=== PATIENT | female | born 1970 | race Caucasian/White ===

== ENCOUNTER 2025-06-05 01:24 | Outpatient (CLI) | payer BC, SELFPAY ==
--- OUTSIDE RECORDS SUMMARY | 2024-09-20 00:29 | XMS_ITS | Encounter Summary ---
Author Organization [facility] [place] [address] Care Team Providers Care Physician Primary Care Sports Medicine Name Role Phone Noah Coleman MD Primary Care Provider [phone] Encounter Details Date Type Department Care Team (Late st Contact Info) Description 08/31/2022 Interpretation Only [address] [address] Anju French APRN [address] [place] [address] [id number] Social History Tobacco Use Types Packs/Day Years Used Date Smoking Tobacco: Never Assessed Sex and Gender Information Value Date Recorded Sex Assigned at Not on file Gender Identity Not on file Sexual Orientation Not on file documented as of this encounter Plan of Treatment Not on file documented as of this encounter Procedures Procedure Name Priority Date/Time Associated Diagnosis Comments XR LUMBAR SPINE 2 OR 3 VIEWS Routine 08/31/2022 2:10 PM EDT documented in this encounter Results * XR Lumbar Spine 2 Or 3 Views (Generic) (08/31/2022 2:10 PM EDT) PT CLASS O RAD ADMITDTTM RAD PT RAD INFO [id number]^B [place] NE RAD EXAM DESC XLSP2^XR L-SPINE AP+LAT ROUTINE^RIS RAD Anatomical Region Laterality Modality L-spine N/A Radiographic Gloria ging Impressions 08/31/2022 2:40 PM EDT Degenerative changes as above. No acute fracture or evidence of traumatic subluxation. Thank you for letting us participate in the care of this patient. ??If you are a health care provider and have any questions regarding this report, please contact the number below. ??For patients who have questions please contact the health home care aide that requested your imaging first. ? Narrative 08/31/2022 2:40 PM EDT EXAMINATION: XR L-SPINE AP+LAT ROUTINE CLINICAL HISTORY: midline low back pain without sciatica TECHNIQUE: 3 views of the lumbar spine COMPARISON: None FINDINGS: 5 nonrib-bearing lumbar-type vertebral bodies. Maintained vertebral height and intervertebral disc spaces. Slight anterolisthesis of L4 on L5, grade 1, with facet hypertrophy. Post cholecystectomy clips. An IUD in place. Procedure Note Dereje De Paz MD - 08/31/2022 EXAMINATION: XR L-SPINE AP+LAT ROUTINE CLINICAL HISTORY: midline low back pain without sciatica TECHNIQUE: 3 views of the lumbar spine COMPARISON: None FINDINGS: 5 nonrib-bearing lumbar-type vertebral bodies. Maintained vertebral heightand intervertebral disc spaces. Slight anterolisthesis of L4 on L5, grade 1,with facet hypertrophy. Post cholecystectomy clips. An IUD in place. IMPRESSION Degenerative changes as above. No acute fracture or evidence oftraumatic subluxation. Thank you for letting us participate in the care of this patient. If youare a health care provider and have any questions regarding this report,please contact the number below. For patients who have questions please contactthe health home care aide that requested your imaging first. Anju M [place] SUPERVISOR PLASMA IMG DX ORDERABLES documented in this encounter Visit Diagnoses Not on filedocumented in this encounter Care Teams Physician Primary Care Sports Medicine Relationship Specialty Start Date End Date Noah Coleman MD [address] [place] [address] PCP - General 10/19/10 documented as of this encounter
--- OUTSIDE RECORDS SUMMARY | 2024-09-20 00:29 | XMS_ITS | Referral Summary ---
Author Organization [facility] Address [address] [place] [address] Care Team Providers Care Courtroom Reporter Name Role Phone Unknown, Provider Primary Care Provider Social History Tobacco Use Types Packs/Day Years Used Date Smoking Tobacco: Never Assessed Sex and Gender Information Value Date Recorded Sex Assigned at Not on file Gender Identity Not on file Sexual Orientation Not on file Plan of Treatment Not on file Care Teams Courtroom Reporter Relationship Specialty Start Date End Date Unknown, Provider, PCP - General 03/01/13
--- OUTSIDE RECORDS SUMMARY | 2024-09-20 00:29 | XMS_ITS | Encounter Summary ---
Author Organization [facility] [place] [address] Care Team Providers Care Medical Billing And Coding Specialist Name Role Phone Noah Coleman MD Primary Care Provider [phone] [phone] Encounter Details Date Type Department Care Team (Late st Contact Info) Description 03/15/2022 Orders [place] [address] Екатерина Lazar APRN [facility] [place] [address] Social History Tobacco Use Types Packs/Day Years Used Date Smoking Tobacco: Never Assessed Sex and Gender Information Value Date Recorded Sex Assigned at Not on file Gender Identity Not on file Sexual Orientation Not on file documented as of this encounter Plan of Treatment Not on file documented as of this encounter Procedures Procedure Name Priority Date/Time Associated Diagnosis Comments VARICELLA ZOSTER ANTIBODY, IGG Routine 03/15/2022 1:45 PM EDT documented in this encounter Results * Varicella zoster Antibody, IgG (03/15/2022 1:45 PM EDT) Varicella Zoster Antibody IgG Positive Positive [facility] Comment: A positive result for this assay is considered to be an indicator of positive immune status. Blood Venous Draw / Unknown 03/15/2022 1:45 PM EDT 03/16/2022 7:30 AM EDT Narrative Resulting Agency Comment Spec In Lab Екатерина Lazar APRN IMMUNOLOGY ORDERABLE S [facility] [place] [address] documented in this encounter Visit Diagnoses Not on filedocumented in this encounter Care Teams Medical Billing And Coding Specialist Relationship Specialty Start Date End Date Noah Coleman MD [address] [place] [address] PCP - General 10/19/10 documented as of this encounter
--- OUTSIDE RECORDS SUMMARY | 2024-09-20 00:29 | XMS_ITS | Clinical Summary ---
Author Organization [facility] Address [address] [place] [address] Care Team Providers Care Recreational Specialist Name Role Phone Unknown, Provider Primary Care Provider Social History Tobacco Use Types Packs/Day Years Used Date Smoking Tobacco: Never Assessed Sex and Gender Information Value Date Recorded Sex Assigned at Not on file Gender Identity Not on file Sexual Orientation Not on file Plan of Treatment Health Maintenance Due Date Last Done Comments Hepatitis C Screen 1972 Hepatitis B Vaccine (1 of 3 - 19+ 3-dose series) 01/06 COVID-19 Vaccine (2022- season) 2023 Care Teams Recreational Specialist Relationship Specialty Start Date End Date Unknown, Provider, PCP - General 03/01/13
--- OUTSIDE RECORDS SUMMARY | 2024-09-20 00:29 | XMS_ITS | Encounter Summary ---
Author Organization [facility] [place] [address] Care Team Providers Care Evidence Custodian Name Role Phone Noah Coleman MD Primary Care Provider [phone] [phone] Encounter Details Date Type Department Care Team (Late st Contact Info) Description 03/15/2022 Orders [place] [address] Екатерина Lazar APRN [facility] [place] [address] Social History Tobacco Use Types Packs/Day Years Used Date Smoking Tobacco: Never Assessed Sex and Gender Information Value Date Recorded Sex Assigned at Not on file Gender Identity Not on file Sexual Orientation Not on file documented as of this encounter Plan of Treatment Not on file documented as of this encounter Procedures Procedure Name Priority Date/Time Associated Diagnosis Comments RUBELLA ANTIBODY, IGG Routine 03/15/2022 1:45 PM EDT documented in this encounter Results * Rubella Antibody, IgG (03/15/2022 1:45 PM EDT) Rubella Antibody IgG Positive Positive [facility] Comment: Please note: ??A positive result for this assay indicates that antibody levels are >or= 10.0 IU/mL and is considered to be an indicator of positive immune status. Blood Venous Draw / Unknown 03/15/2022 1:45 PM EDT 03/15/2022 1:59 PM EDT Narrative Resulting Agency Comment Spec In Lab Екатерина Lazar APRN CHEMISTRY ORDERABLES [facility] [place] [address] documented in this encounter Visit Diagnoses Not on filedocumented in this encounter Care Teams Evidence Custodian Relationship Specialty Start Date End Date Noah Coleman MD [address] [place] [address] PCP - General 10/19/10 documented as of this encounter
--- OUTSIDE RECORDS SUMMARY | 2024-09-20 00:29 | XMS_ITS | Encounter Summary ---
Author Organization [facility] Address [address] [place] [address] Care Team Providers Care Nutrition Teacher Name Role Phone Unavailable Primary Care Provider Unavailabl e Encounter Details Date Type Department Care Team ([facility] st Contact Info) Description 09/27/2011 Results Only [facility] Laboratory Services - [facility] ([facility] [address] [place], [place] [address] Anju French, NEW CAR MAKE READY WORKER [address] [place] [address] Social History Tobacco Use Types Packs/Day Years Used Date Smoking Tobacco: Never Assessed Sex and Gender Information Value Date Recorded Sex Assigned at Not on file Gender Identity Not on file Sexual Orientation Not on file documented as of this encounter Plan of Treatment Not on file documented as of this encounter Procedures Procedure Name Priority Date/Time Associated Diagnosis Comments PAP TEST- RESULT ONLY Routine 09/27/2011 0:00 EDT documented in this encounter Results * PAP TEST- RESULT ONLY (09/27/2011 0:00 EDT) Pathology Report: CYTOPATHOLOGY REPORT Reports generated via electronic interface contain original data; however they are lacking the format of the original report. Caution should be taken when reading/interpreti ng unformatted reports. Name: ? IZABELA RAHMAN ? Accession #: ? [id number] : ? 1970 (Age: 41) ??F ?Collect Date: ? 09/27/2011 Location: ? [facility] ? Receive Date: ? 09/29/2011 Provider: ?ANJU FRENCH NEW CAR MAKE READY WORKER Copy to: ? Specimen/Source: ?Pap Test, Cervix, ThinPrep Imaging System with manual evaluation Last Menstrual Period: ? 6 years Hormonal/Contracep tive Status: ? Intrauterine device: mirena in place ? SPECIMEN ADEQUACY ? Satisfactory for Evaluation - transformation zone component present GENERAL CATEGORIZATION ? Negative for Intraepithelial Lesion or Malignancy INTERPRETATION ? Reactive cellular changes associated with inflammation present (includes repair). ? Document reviewed and electronically signed by: ? REGINA DAVIS MD ? Report Date: ??10/08/2011 13:28 End of Report [facility] 09/27/2011 09/29/2011 Anju French NEW CAR MAKE READY WORKER PATHOLOGY ORDERAB LES [facility] IGLESI[facility] [address] [place] [address] documented in this encounter Visit Diagnoses Not on filedocumented in this encounter
--- OUTSIDE RECORDS SUMMARY | 2024-09-20 00:29 | XMS_ITS | Encounter Summary ---
Author Organization [facility] [place] [address] Care Team Providers Care Seamer Name Role Phone Noah Coleman MD Primary Care Provider [phone] [phone] Encounter Details Date Type Department Care Team (Late st Contact Info) Description 03/15/2022 Orders [place] [address] Екатерина Lazar APRN [facility] [place] [address] Social History Tobacco Use Types Packs/Day Years Used Date Smoking Tobacco: Never Assessed Sex and Gender Information Value Date Recorded Sex Assigned at Not on file Gender Identity Not on file Sexual Orientation Not on file documented as of this encounter Plan of Treatment Not on file documented as of this encounter Procedures Procedure Name Priority Date/Time Associated Diagnosis Comments QUANTIFERON-TB GOLD Routine 03/15/2022 1 :45 PM EDT documented in this encounter Results * QuantiFERON-TB Gold (03/15/2022 1:45 PM EDT) Quantiferon Nil 0.081 IU/mL [facility] QFT TB Ag1-Nil 0.126 IU/mL [facility] QFT TB Ag2-Nil 0.036 IU/mL [facility] Quantiferon Mitogen-Nil 9.919 IU/mL [facility] Quantiferon-TB Gold Negative Negative [facility] Quantiferon Tb Interp M. tuberculosis infection NOT likely A negative specimen should have a TB1 Ag minus Nil value and TB2 Ag minus Nil value of less than 0.35 IU/mL OR a TB1 Ag minus Nil or TB2 Ag minus Nil value greater than or equal to 0.35 IU/mL AND a TB Ag minus Nil value from the same tube of less than 25% of the Nil value. A negative specimen must also have a mitogen minus Nil value greater than or equal to 0.5 IU/mL. A negative QFT-Plus result does not preclude the possibility of M. tuberculosis infection. False negative results can occur due to stage of infection (specimen obtained prior to the development of immune response), co-morbid conditions which affect immune function, or other immunological factors. [facility] Blood Venous Draw / Unknown 03/15/2022 1:45 PM EDT 03/16/2022 10:34 AM EDT Narrative Resulting Agency Comment Spec In Lab Екатерина T Cady AUTO OVERHAULER CHEMISTRY ORDERABLES [facility] [place] [address] documented in this encounter Visit Diagnoses Not on filedocumented in this encounter Care Teams Seamer Relationship Specialty Start Date End Date Noah Coleman MD [address] [place] [address] PCP - General 10/19/10 documented as of this encounter
--- OUTSIDE RECORDS SUMMARY | 2024-09-20 00:29 | XMS_ITS | Encounter Summary ---
Author Organization [facility] [place] [address] Care Team Providers Care Elevator Examiner And Adjuster Name Role Phone Noah Coleman MD Primary Care Provider [phone] Encounter Details Date Type Department Care Team (Late st Contact Info) Description 03/15/2022 Orders [place] [address] Екатерина Lazar APRN [facility] [place] [address] Social History Tobacco Use Types Packs/Day Years Used Date Smoking Tobacco: Never Assessed Sex and Gender Information Value Date Recorded Sex Assigned at Not on file Gender Identity Not on file Sexual Orientation Not on file documented as of this encounter Plan of Treatment Not on file documented as of this encounter Procedures Procedure Name Priority Date/Time Associated Diagnosis Comments MUMPS ANTIBODY, IGG Routine 03/15/2022 1 :45 PM EDT documented in this encounter Results * Mumps Antibody, IgG (03/15/2022 1:45 PM EDT) Mumps Antibody IgG Positive Positive [facility] Comment: A positive result for this assay is considered to be an indicator of positive immune status. Blood Venous Draw / Unknown 03/15/2022 1:45 PM EDT 03/16/2022 7:30 AM EDT Narrative Resulting Agency Comment Spec In Lab Екатерина Lazar APRN IMMUNOLOGY ORDERABLE S [facility] [place] [address] documented in this encounter Visit Diagnoses Not on filedocumented in this encounter Care Teams Elevator Examiner And Adjuster Relationship Specialty Start Date End Date Noah Coleman MD [address] [place] [address] PCP - General 10/19/10 documented as of this encounter
--- OUTSIDE RECORDS SUMMARY | 2024-09-20 00:29 | XMS_ITS | Encounter Summary ---
Author Organization [facility] Address [address] [place] [address] Care Team Providers Care Body Shop Manager Name Role Phone Unavailable Primary Care Provider Unavailabl e Encounter Details Date Type Department Care Team (Latest Contact Info) Description 09/27/2011 10:29 EDT - 09/27/2011 10:34 EDT Hospital Encounter [address] [address] Anju French, CH[employer] HISTORY TEACHER [address] [place] [address] Discharge Disposition: Home or Self Care Social History Tobacco Use Types Packs/Day Years Used Date Smoking Tobacco: Never Assessed Sex and Gender Information Value Date Recorded Sex Assigned at Not on file Gender Identity Not on file Sexual Orientation Not on file documented as of this encounter Discharge Disposition Disposition Code Departure Means Destination Home or Self Care documented in this encounter Plan of Treatment Not on file documented as of this encounter Visit Diagnoses Not on filedocumented in this encounter
--- OUTSIDE RECORDS SUMMARY | 2024-09-20 00:29 | XMS_ITS | Encounter Summary ---
Author Organization [facility] Address [address] [place] [address] Care Team Providers Care Brusher Operator Name Role Phone Unknown, Provider Primary Care Provider Encounter Details Date Type Department Care Team (Late st Contact Info) Description 03/01/2013 Results Only [facility] Laboratory Services - [facility] ([facility] [address] [place], [place] [address] Sudhakar Jernigan, DO [address] [facility] [address] [place], [place] [id number] Social History Tobacco Use Types Packs/Day Years Used Date Smoking Tobacco: Never Assessed Sex and Gender Information Value Date Recorded Sex Assigned at Not on file Gender Identity Not on file Sexual Orientation Not on file documented as of this encounter Plan of Treatment Not on file documented as of this encounter Procedures Procedure Name Priority Date/Time Associated Diagnosis Comments SURGICAL PATHOLOGY Routine 03/01/2013 20 :36 EDT documented in this encounter Results * SURGICAL PATHOLOGY (03/01/2013 20:36 EDT) Pathology Report: SURGICAL PATHOLOGY REPORT Reports generated via electronic interface contain original data; however they are lacking the format of the original report. Caution should be taken when reading/interpreti ng unformatted reports. Name: ? IZABELA RAHMAN ? Accession #: ? [id number] ? : ? 1970 (Age: 43) ??F ? Collect Date: ? 03/01/2013 ? Location: ? [facility] ? Receive Date: ? 03/01/2013 ? Provider: SUDHAKAR JERNIGAN DO Copy to: DEMETRA GAYLE MD ? Final Pathologic Diagnosis: A. ?Stomach, antrum, biopsies: 1. ?Gastric antral mucosa with mild reactive gastropathy. B. ?Esophagus, distal, biopsies: 1. ?Squamocolumnar junctional mucosa with mild reactive features. 2. ?Negative for intestinal metaplasia; Negative for dysplasia. C. ?Esophagus, mid, biopsies: 1. ?Squamous mucosa with no specific pathologic features. D. ?Esophagus, proximal, biopsies: 1. ?Squamous mucosa with no specific pathologic features. Document reviewed and electronically signed by: PAULINA SUÁREZ MD Report ??Date: 03/04/2013 17:50 By the signature above, the attending physician certifies that he/she has personally conducted a gross and/or microscopic examination of the described specimens and rendered or confirmed the above diagnosis. Specimen(s) Received: A. ?Antrum x2 B. ? Distal esophagus bx x2 C. ? Mid esophagus bx x2 D. ? Proximal esophagus bx x2 Clinical History: ? Dysphagia, on PPI, symptoms improving in PPI Intraoperative Interpretation: ? Received in formalin labelled Izabela Rahman and antrum biopsy x2 are two pink-alfaro, irregular soft tissue fragments measuring 0.3 x 0.3 x 0.3 cm and 0.4 x 0.3 x 0.2 cm. ??The specimen is entirely submitted as (A1). Received in formalin labelled RahmanIzabela and distal esophagus biopsy x2 are four pink-alfaro, irregular soft tissue fragments ranging in size from 0.3 x 0.2 x 0.2 cm to 0.6 x 0.4 x 0.3 cm. ??The specimen is entirely submitted as (B1). Received in formalin labelled Rahman, Izabela and mid esophagus biopsy x2 are two alfaro-hudson, soft tissue fragments measuring 0.2 x 0.2 x 0.2 cm. ??Submitted entirely as (C1). Received in formalin labelled Rahman, Izbaela and proximal esophagus biopsy x2 are two white-alfaro soft tissue fragments, both measuring 0.7 x 0.3 x 0.1 cm. ??The specimen is entirely submitted as (D1). ??(Dr. Yuan)/[facility] ?? End of Report [facility] 03/01/2013 20:3 6 EDT 03/01/2013 20:36 EDT Sudhakar Jernigan DO PATHOLOGY ORDER REX [facility] [address] [place] [address] documented in this encounter Visit Diagnoses Not on filedocumented in this encounter Care Teams Brusher Operator Relationship Specialty Start Date End Date Unknown, Provider, PCP - General 03/01/13 documented as of this encounter
--- OUTSIDE RECORDS SUMMARY | 2024-09-20 00:29 | XMS_ITS | Clinical Summary ---
Author Organization [facility] Address [facility] [place] [address] Care Team Providers Care Metallurgist Helper Name Role Phone Noah Coleman MD Primary Care Provider [phone] [phone] Social History Tobacco Use Types Packs/Day Years Used Date Smoking Tobacco: Never Assessed Sex and Gender Information Value Date Recorded Sex Assigned at Not on file Gender Identity Not on file Sexual Orientation Not on file Plan of Treatment Health Maintenance Due Date Last Done Comments CT Colonography 1972 Colonoscopy 1972 Colorectal Cancer Screening 1970 FIT DNA 1972 FIT 1972 Sigmoidoscopy (10 year) with FIT yearly 1972 Sigmoidoscopy 1972 HIV screen 1990 Hepatitis C Screening 1990 Hepatitis B vaccine (0-59 yrs) (1) 1991 Tetanus/Diphtheria/Pertussis Vaccines (1 - Tdap) 01/06 HPV test 2002 PAP Smear 2002 Breast Cancer Share Decision Needed 2012 Breast Cancer screening 2012 Zoster vaccine (1 of 2) 2022 Covid-19 Vaccine ( season) 2024 Influenza (Flu) vaccine (1 o f 1 - Influenza standard series) 07/28/2024 Care Teams Metallurgist Helper Relationship Specialty Start Date End Date Noah Coleman MD [address] [place] [address] PCP - General 10/19/10
--- OUTSIDE RECORDS SUMMARY | 2024-09-20 00:29 | XMS_ITS | Encounter Summary ---
Author Organization [facility] [place] [address] Care Team Providers Care Rim Buster Name Role Phone Noah Coleman MD Primary Care Provider [phone] Encounter Details Date Type Department Care Team (Late st Contact Info) Description 03/15/2022 Orders [place] [id number] Екатерина Lazar APRN [facility] [place] [address] Social History Tobacco Use Types Packs/Day Years Used Date Smoking Tobacco: Never Assessed Sex and Gender Information Value Date Recorded Sex Assigned at Not on file Gender Identity Not on file Sexual Orientation Not on file documented as of this encounter Plan of Treatment Not on file documented as of this encounter Procedures Procedure Name Priority Date/Time Associated Diagnosis Comments MEASLES (RUBEOLA) ANTIBODY, IGG Routine 03/15/2022 1:45 PM EDT documented in this encounter Results * Measles (Rubeola) Antibody, IgG (03/15/2022 1:45 PM EDT) Rubeola Antibody IgG Positive Positive [facility] Comment: A positive result for this assay is considered to be an indicator of positive immune status. Blood Venous Draw / Unknown 03/15/2022 1:45 PM EDT 03/16/2022 7:30 AM EDT Narrative Resulting Agency Comment Spec In Lab Екатерина Lazar APRN IMMUNOLOGY ORDER[place] [address] documented in this encounter Visit Diagnoses Not on filedocumented in this encounter Care Teams Rim Buster Relationship Specialty Start Date End Date Noah Coleman MD [address] [place] [address] PCP - General 10/19/10 documented as of this encounter
--- NOTE | 2025-06-05 | DI.CTLCSR_ITS ---
Exam(s) CT CHEST LUNG CANCER SCREEN EXAM: CT CHEST LUNG CANCER SCREEN CLINICAL HISTORY: F17.200 Current Smoker. TECHNIQUE: Imaging Protocol: Low Dose Technique CONTRAST MATERIAL: None COMPARISON: No exams were available for comparison FINDINGS: CHEST: LUNGS: There is a small pleural based noncalcified nodule measuring 3 mm in the lateral aspect of the right upper lobe. There are no other significant focal right lung findings and no pleural effusion. In the opposite-left lung there is a small nodular infiltrate in the lingular segment which measures 5 x 3 mm. No other significant focal left lung findings. No pleural effusions on either side. No significant focal findings in the trachea and mainstem bronchi. There is no bronchiectasis. MEDIASTINUM: There is no obvious hilar nor mediastinal adenopathy. CARDIAC: Heart size is normal. There is no pericardial effusion.Caliber of the thoracic aorta is within normal limits. OTHER: No adrenal masses. Cholecystectomy. Multiple hypodensities in the liver noted which are difficult to evaluate on this type study, these measuring up to 1.8 cm size. Probable cyst but cannot be certain without more dedicated imaging. OSSEOUS: No significant osseous lesions.Fractures.. IMPRESSION: 1. Single small sub cm nodule in each lung as described above. 2. No confluent infiltrates nor pleural effusions nor intrathoracic adenopathy. 3. Lung RADS Cat 2 - Benign Appearance / Behavior: Nodules with a very low likelihood of becoming a clinically active cancer due to size or lack of growth Lung-RADS 1.0 CATEGORIES: Category 0 - Prior chest CT exam(s) being located for comparison. Category 1 - Annual screening in 12 months. No nodules or definitely benign nodules. Category 2 - Annual screening in 12 months. Benign appearance. Nodules with low likelihood of becoming active cancer. Category 3 - 6-month follow-up. Probably benign. Short-term follow-up suggested. Nodules with low likelihood of becoming active cancer. Category 4A - 3-month follow-up and CT/PET if >8 mm in size. Suspicious finding. Findings which require additional testing. Category 4B - Findings which require additional testing and tissue sampling. Category 4X - Category 3 or 4 nodules with additional features or imaging findings that increases the suspicion of malignancy. Modifier S- Potentially clinically significant findings (non lung cancer) RADIATION DOSE DELIVERED: 88.39mGy.cm Total DLP DATA REPOSITORY: All CT scans at this facility are submitted to the National Radiology Data Registry (NRDR) Dose Index Registry (DIR) with the [employer] ([employer]). RADIATION OPTIMIZATION: All CT scans at this facility use at least one of these dose optimization techniques: automated exposure control; mA and/or kV adjustment per patient size (includes targeted exams where dose is matched to clinical indication); or iterative reconstruction.
--- NOTE | 2025-06-05 12:29 | DI.MAMMO_ITS ---
Exam(s) MAMMO SCREENING EXAM: MAMMO SCREENING CLINICAL HISTORY: screening Z12.39. TECHNIQUE: Bilateral full field digital CC and MLO mammographic images were obtained with 3D tomosynthesis and utilizing computer aided detection (CAD). COMPARISON: None. Mammogram of 2015 is not available FINDINGS: The fibroglandular tissue pattern is predominately fatty. There are no new spiculated masses nor malignant appearing microcalcification groups. Benign-appearing microcalcification group noted in left breast. There is no significant architectural distortion nor skin thickening-retraction. IMPRESSION: Benign findings. No radiographic evidence of malignancy. BI-RADS Category 2 - Benign Findings Breast Density - Category B - There are scattered areas of fibroglandular density. Breast density Category C or D implies that the patient has dense breast tissue. Dense breast tissue can make it harder to find cancer on a mammogram. Dense breast tissue is also associated with an increased risk of breast cancer. This information about the result of the mammogram report was provided to the patient to raise their awareness. Use this report when you speak with the patient about their risks for breast cancer, which includes their family history. At that time, you may recommend additional screening tests (Ultrasound or MRI) as these tests may add significant information. A negative radiographic report should not delay biopsy if a dominant or clinically suspicious mass is present. Up to ten percent of cancers are not identified on mammography. A negative report may reinforce clinical impression. Adenosis and dense breasts may obscure an underlying neoplasm. False positive reports average 6 to 10%. Patient will receive a letter notifying them of these results.
== END 2025-06-05 01:44 ==
PROVIDERS: PCP Family Medicine; Visit Provider Nurse Practitioner
DX: Z12.31 Encounter for screening mammogram for malignant neoplasm of breast (principal); R92.323 Mammographic fibroglandular density, bilateral breasts
CPT/HCPCS: 71271; 77063; 77067